=== PATIENT | male | born 1965 | race Caucasian/White ===

== ENCOUNTER 2025-01-21 00:30 | Emergency (ER) | payer OTHER, SELFPAY ==
[2025-01-21 00:34] VITALS: BP 170/107
--- NOTE | 2025-01-21 03:27 | ED.GENMED ---
History of Present Illness
General
Chief Complaint: Fall
Source: patient
Exam Limitations: none
Time Seen by Provider: 01/21/25 03:08
Nursing documentation reviewed up to this point in time: agreed with
History of Present Illness
History of Present Illness:
pt is a 59 y/o M
h/o back problems/herniated discs
mechanical trip and fall over his soaking tub onto the marble corner in the bathroom causing laceration to forehead. no LOC
he says his neck also hyperextended and is sore lateralyl
no numnbess/tnging/weakness
no LOC
no alcohol
unknown tetanus shot
no vomiting
dad drove him here.
Past History
Past History
ED Past Medical History: Other (back pain)
Social History
Tobacco: Non-smoker
Alcohol: None
Review of Systems
Review of Systems
Allergies reviewed?: Yes
All Other Systems: Not applicable
Phy Exam
Physical Exam
Physical Exam:
GENERAL: Alert , in no apparent distress
HEAD: NCAT
NECK: no midline tenderness, active ROM intact, mild left-sided paraspinal and trapezius tenderness, full range of motion
EYE: pupils equal and reactive, EOMs intact.
ENT: o/p clr, mmm. no hemotympanum
CARDIAC: Regular rate and rhythm, no edema
LUNGS: Clear breath sounds bilaterally, no acute respiratory distress, no wheezes/rales/rhonchi
ABDOMEN: Soft, without focal tenderness, no r/g, no cvat
NEUROLOGICAL: Alert and oriented, no focal neuro deficits, CN intact, 5/5 strength, sensation intact
SKIN: Warm and dry, irregular/linear laceration approximately 5 cm to the right side of the forehead vertically oriented, mildly oozing
MUSCULOSKELETAL: No edema, well perfused.
PSYCH: Normal and appropriate interaction.
Course
Orders/Labs/Results
Orders:
Orders
01/21/25 00:44
CT Cervical Spine W/o Iv Contr Urgent
Comment: c/o neck tightness
Reason For Exam: fell in bathtub
CT Head W/o Iv Contrast Urgent
Comment:
Reason For Exam: fell in bathtub, struck R frontal area no loc
01/21/25 03:27
Tetanus/Diphth/Acelpertussis [Adacel] 0.5 ml IM .ONCE ONE
Vital Signs
Initial and Last Documented VS:
Initial Vital Signs
Temp Pulse Resp BP Pulse Ox
37.1 C 101 16 170/107 97
01/21/25 00:34 01/21/25 00:34 01/21/25 00:34 01/21/25 00:34 01/21/25 00:34
Last Documented Vital Signs
Temp Pulse Resp BP Pulse Ox
37.1 C 101 16 170/107 97
01/21/25 00:34 01/21/25 00:34 01/21/25 00:34 01/21/25 00:34 01/21/25 00:34
Procedures
Laceration Closure
Right Forehead:
Status of Wound: clean
Size of Wound in cm: 6
Description of Wound Edges: sharp
Preparation: cleaned with saline
Anesthesia: 1% Lidocaine with epi
Revision/Debridement: minor revision and irrigate-direct pressure
Wound exploration: explored to base- no FB
Type of Closure: layered closure
Skin Closure Material: 6-0 nylon and 5-0 vicryl
Number of sutures: 11
MDM/Problems Addressed
Differential Diagnosis Includes:
concussion, laceration, crvical strain
MDM/Problems Addressed:
59 y/o M
mechanical trip and fall into the corner of part of his marble tile in his bathroom causing head laceration forehead and a extension neck injury
no parestheisas/weakness
mild L sided paraspinal and trap tenderness
was in c collar
neuro intact
ct head/neck neg
pt had collar removed AND PT ABLE TO ROTATE NECK
has some mild stiffness; declined pain meds
laceration was approx 6 cm and requiring sutures
teatnus updated
*Critical Care Note
Total Time (30-74mins, 75-104mins- exclusive of procedures): Not Applicable
ED Attending Note
-
Portions of this chart may have been created with voice recognition software.� Occasional wrong word or��sound alike� substitutions may have occurred due to the inherent limitations of voice recognition software.
Discharge Plan
Departure
Patient Disposition: Home (Routine Discharge)
Date of Disposition: 01/21/25
Time of Disposition: 04:04
Patient with high blood pressure during this ER visit?: Yes
Condition: Fair
Covid-19: Not Applicable
Discharge Problem:
Forehead laceration, Minor head injury, Cervical muscle strain
Instructions: Head Injury in Adults (DC), Laceration Repair With Stitches (DC), Cervical Sprain ED
Prescriptions:
No Action
No Meds [No Current Medications]
Referrals:
Jo-Ann Pappas CRNP [Family Provider, Family Practice] - Follow up in 5-7 days
Referral Note: FOR SUTURE REMOVAL
Activity Restrictions/Additional Instructions:
KEEP THE WOUND CLEAN AND DRY FOR 24 HOURS
AFTER THAT YOU CAN GET IT WET IN THE BATH/SHOWER ONCE A DAY AND MAKE SURE IT IS CLEAN AND THERE IS NO DRIED BLOOD ON THE STITCHES
APPLY NEOSPORIN AND A BANDAID
THE STITCHES NEED TO BE REMOVED IN ABOUT 7 DAYS, SEE YOUR DOCTOR FOR THIS.
THE LAST DAY BEFORE STITCHES OUT, NO OINTMENT, LEAVE OPEN TO AIR
WATCH FOR SIGNS OF INFECTION AND RETURN NEEDED FOR PAIN, SWELLING, REDNESS, DRAINAGE, BLEEDING.
MOTRIN NEEDED FOR PAIN.
YOUR CAT SCAN OF YOUR HEAD/NECK WAS NEGATIVE FOR FRACTURE
YOU HAVE ARTHRITIS IN YOUR NECK
HEAT/ICE OFF AND ON
SLEEP WITH EXTRA PILLOW TO HELP WITH SWELLING
ICE ON YOUR FOREHEAD
RETURN FOR : SEVERE HEADACHE, VOMITING, CONFUSION, WEAKNESS, NUMBNESS OR ANY CONCERNS.
Interventions
Interventions:
*Risk Screen - Suicide Last Done: 01/21/25 00:34
Discharge Date and Time
Print Language: KAZAKH
[2025-01-21] MEDS: ADACEL 0.5 ML IM (04:01)
[2025-01-21 04:11] VITALS: BP 188/114
== END 2025-01-21 05:30 | disposition home or self-care (01) ==
LOC: EMR 00:30
PROVIDERS: EMERGENCY PHYSICIAN Student in an Organized Health Care Education/Training Program; FAMILY PHYSICIAN Nurse Practitioner Family
DX: S01.81XA Laceration without foreign body of other part of head, initial encounter (principal); S16.1XXA Strain of muscle, fascia and tendon at neck level, initial encounter; W18.2XXA Fall in (into) shower or empty bathtub, initial encounter; Y93.E1 Activity, personal bathing and showering; Z23 Encounter for immunization
CPT/HCPCS: 12053; 99284; 90471; 70450; 72125; 90715

== ENCOUNTER 2025-01-21 09:21 | Emergency (ER) | payer OTHER, SELFPAY ==
[2025-01-21 09:24] VITALS: BP 175/107
--- NOTE | 2025-01-21 09:58 | ED.GENMED ---
History of Present Illness
General
Chief Complaint: Head Injury
Source: patient and records
Time Seen by Provider: 01/21/25 09:39
History of Present Illness
History of Present Illness:
59-year-old male presenting back to the emergency department after being seen last night for an accidental trip and fall resulting in head injury with laceration repair after radiology had called him this morning when they were rereading his head CT
and was ultimately found to have a nondisplaced right sided frontal skull fracture. Yesterday evening patient tripped and fell into a marble tub resulting in the head injury. He states that he has not had much sleep so he does feel little bit
tired and a headache but otherwise asymptomatic. Denies any vomiting, visual disturbances, focal weakness or numbness or any other concerns presently. Patient denies any use of anticoagulants.
Past History
Past History
ED Past Medical History: Other (back pain)
ED Past Surgical History: Orthopedic
Social History
Tobacco: Non-smoker
Alcohol: None
Drug: None
Personal: Single
Living: alone
Employment: Employed
Review of Systems
Review of Systems
All Other Systems: ROS reviewed and negative except as documented in HPI and ROS
Phy Exam
Physical Exam
Physical Exam:
GENERAL: Alert , in no apparent distress
EYE: conjunctiva clear
Head: closed laceration with bandage overlying right frontal scalp, no bleeding
NECK: Supple,
ENT: mmm.
LUNGS: no acute respiratory distress
NEUROLOGICAL: Alert and oriented, ambulated with steady gait
SKIN: Warm and dry, skin intact.
MUSCULOSKELETAL: well perfused.
PSYCH: Normal and appropriate interaction.
Scores
Heart Failure Risk
Heart Failure Risk Score: Not Applicable
Heart Score for Chest Pain Patients
STEMI patient?: Not applicable
Withdrawal Assessment of Alcohol
Withdrawal Assessment Completed?: Not applicable
Course
Orders/Labs/Results
Orders:
Orders
01/21/25 09:54
CT Head W/o Iv Contrast Urgent
Comment:
Reason For Exam: repeat for frontal bone fx, possible bleed
Vital Signs
Initial and Last Documented VS:
Initial Vital Signs
Temp Pulse Resp BP Pulse Ox
98.2 F 93 22 175/107 98
01/21/25 09:24 01/21/25 09:24 01/21/25 09:24 01/21/25 09:24 01/21/25 09:24
Last Documented Vital Signs
Temp Pulse Resp BP Pulse Ox
98.2 F 93 22 175/107 98
01/21/25 09:24 01/21/25 09:24 01/21/25 09:24 01/21/25 09:24 01/21/25 09:24
MDM/Problems Addressed
Differential Diagnosis Includes:
known frontal skull fracture, delayed ICH, concussion
MDM/Problems Addressed:
59-year-old male presenting back to the emergency department after he was contacted by radiology this morning for a skull fracture that was unfortunately missed on overnight read. Patient noting he has mild headache but otherwise asymptomatic. No
anticoagulants. Will call neurosurgery to discuss. Disposition pending
*Radiology
Radiology exam reviewed: radiology read reviewed
*Pulse Oximetry
Patient hypoxic: no
*Critical Care Note
Total Time (30-74mins, 75-104mins- exclusive of procedures): Not Applicable
Data Reviewed
Review of Other/Old Records Reveals: Radiology Studies
Source: patient and records
Patient Management
Discussion with other providers: PCP and Health Systems Analyst
Escalation/DeEscalation of care consider admission/obs:
9:55 AM: Case discussed with on-call neurosurgeon, Dr. Leal, states okay to repeat head CT now to ensure no delayed onset intracranial bleeding. As long as the CT scan remains stable patient can be discharged home on a 7-day course of Keflex and
follow-up with primary care provider.
CT scan unchanged from overnight. Patient stable for discharge home. Prescription for Keflex sent to patient's pharmacy. Patient aware of return precautions to the ER. He will follow-up with primary care provider. I did also send notification
to patient's primary care provider to help with follow-up.
ED Attending Note
-
Portions of this chart may have been created with voice recognition software.� Occasional wrong word or��sound alike� substitutions may have occurred due to the inherent limitations of voice recognition software.
Discharge Plan
Departure
Patient Disposition: Home (Routine Discharge)
Date of Disposition: 01/21/25
Time of Disposition: 10:40
Patient with high blood pressure during this ER visit?: Yes
Discharge Problem:
Closed nondisplaced fracture of right frontal skull, Forehead laceration
Instructions: Laceration Repair With Stitches (DC), Skull Fracture (DC)
Prescriptions:
New
cephalexin 500 mg tablet
500 mg PO BID 7 Days Qty: 14 0RF
No Action
No Meds [No Current Medications]
Referrals:
Jo-Ann Pappas CRNP [Family Provider, Family Practice]
Interventions
Interventions:
*Risk Screen - Suicide Last Done: 01/21/25 09:24
*General Assessment Last Done: 01/21/25 09:24
*Neglect/Abuse Screening Last Done: 01/21/25 09:24
*Nursing Disposition Last Done: 01/21/25 10:50
ED- Neurological Assessment Last Done: 01/21/25 09:54
ED-Skin Assessment Last Done: 01/21/25 09:54
Discharge Date and Time
Discharge Date/Time: 01/21/25 10:50
Print Language: GREENLANDIC
== END 2025-01-21 10:50 | disposition home or self-care (01) ==
LOC: EMR 09:21
PROVIDERS: EMERGENCY PHYSICIAN Emergency Medicine; FAMILY PHYSICIAN Nurse Practitioner Family
DX: S02.0XXA Fracture of vault of skull, initial encounter for closed fracture (principal); S01.81XA Laceration without foreign body of other part of head, initial encounter; W01.0XXA Fall on same level from slipping, tripping and stumbling without subsequent striking against object, initial encounter
CPT/HCPCS: 12011; 99284; 70450